=== PATIENT | male | born 2000 | race Caucasian/White ===

== ENCOUNTER 2022-07-04 11:59 | Emergency (ER) | payer SELFPAY ==
--- OUTSIDE RECORDS SUMMARY | 2022-07-04 12:03 | XMS REPORT | Continuity of Care Document ---
:2000 Author Organization [facility] t Address [address] [place] [address] [place] [id number] Care Team Providers Name Role Phone PREETHI PINZON Primary Care Physician Unavailable OCTAVIA PIERCE Attending Clinician Unavailable Octavia Pierce MD Attending Clinician Unknown, Attending Attending Clinician Unavailable OLGA HANEY Attending Clinician Unavailable Green REST ROOM ATTENDANT, Olga Attending Clinician Omaghomi REST ROOM ATTENDANT, Omayemi Attending Clinician MARISOL BREEN Attending Clinician Unavailable Jamshid REST ROOM ATTENDANTMarisol Attending Clinician Doctor Unassigned, [place] Attending Clinician Unavailable Only, Ang Db Test Attending Clinician Unavailable ELLA Attending Clinician Unavailable Preethi Pinzon MD Attending Clinician ANNA MARIE SULLIVAN Attending Clinician Unavailable ANNA MARIE SULLIVAN Attending Clinician Unavailable [facility], [facility] Attending Clinician Unavailable Anna Marie Sullivan MD Attending Clinician PREETHI PINZON Attending Clinician Unavailable ELLA Admitting Clinician Unavailable Payers Payer Name Policy Type Policy Number Effective Date Expiration Date S zaira [employer] O [id number] 2020 00:00:00 [place] [id number] 2019 00:00:00 Problems Condition Condition Condition Status Onset Resolution Last Treating Co mments Source Name Details Category Date Date Treatment Clinician Date Anxiety Anxiety Disease Active 2019-0 Univers 2-24 ity of 00:00: 00 Medical Branch Chronic Chronic Disease Active 2020- Univers fatigue fatigue 2-24 ity of 00:00: Medical Branch Daytime Daytime Disease Active 2019- Univers hypersomno hypersomno 2-24 it y of lence lence 00:00: [place] [facility] Allergies, Adverse Reactions, Alerts Allergy Allergy Status Severity Reaction(s) Onset Inactive Treating Comm ents Source Name Type Date Date Clinician Penicill Propensi Active Unknown - Uni vers ins ty to See comments 5-21 ity of adverse 00:00: [place] reaction 00 Medical s Branch Penicill Propensi Active Unknown - Uni vers ins ty to See comments 5-21 ity of adverse 00:00: [place] reaction 00 Medical s Branch Penicill Propensi Active Unknown - Uni vers ins ty to See comments 5-21 ity of adverse 00:00: [place] reaction 00 Medical s Branch PENICILL Drug Active Unknown-Cmnt Un troy INS Class 5-21 ity of 00:00: [place] [facility] Social History Social Habit Start Date Stop Date Quantity Comments Source History of Chews Tobacco University of tobacco use [place] [facility] History [facility] University o f Alcohol Std [place] [facility] Drinks Branch History [facility] University o f Alcohol Binge [place] [facility] Alcohol intake 2022-02-09 2022-02-09 Current drinker Unive rsity of 00:00:00 00:00:00 of alcohol [place] [facility] (finding) Branch Tobacco use and 2022-02-09 2022-02-09 Former smokeless Uni versity of exposure 00:00:00 00:00:00 tobacco user [place] [facility] Alcohol Comment 2022-02-09 2022-02-09 1 drink a Universit y of 00:00:00 00:00:00 day/week- [place] [facility] 30/weekend Branch Exposure to 2021-07-09 2021-07-19 Not sure University of SARS-CoV-2 00:00:00 12:23:00 [place] [facility] (event) Branch History SDOH 2019-04-09 2019-04-09 1 University o f Alcohol Frequency 00:00:00 00:00:00 [facility] edical Branch Sex Assigned At [birth year] Universit y of 00:00:00 00:00:00 [place] [facility] Smoking Status Start Date Stop Date Source Unknown if ever smoked Universit y of [facility] Never smoked tobacco [facility] Current some day smoker 2020-12-02 00:00:00 [facility] Medications Ordered Filled Start Stop Current Ordering Indication Dosage Frequency Signature Comments Components Source Medication Medication Date Date Medication? Clinician (SIG) Name Name azraFENesin 2021-02 Yes [id number] 400mg Take 1 Univers 400 mg 2-27 tablet by ity of tablet 00:00: mouth [place] 00 every 4 Medical (four) Branch hours as needed for Cough. benzonatate 2021-02 Yes [id number] 200mg Take 2 Univers 100 mg 2-27 capsules ity of capsule 00:00: by mouth [place] 00 every 8 Medical (eight) Branch hours as needed for Cough. azithromyci 2021-02 Yes [id number] 250mg Take 1 Univers n 2-27 tablet by ity of (ZITHROMAX 00:00: mouth in [place] as Z-PRIYA) 250 00 the Medical mg tablet morning. Branch mupirocin 2 Yes [id number] Apply to Univers % ointment 6-05 area(s) 3 ity of 00:00: (three) [place] 00 times Medical daily. Branch mupirocin 2 Yes [id number] Apply to Univers % ointment 6-05 area(s) 3 ity of 00:00: (three) [place] 00 times Medical daily. Branch doxycycline 2021- No [id number] 100mg Take 1 Univers hyclate 100 6- 06-13 tablet by it y of mg tablet 00:00: 04:59 [place] 2 [place] :[place] (two) Medical times [place] daily for 7 days. clindamycin 2021- No [id number] 300mg Take 1 Univers 300 mg 4-05 04-16 capsule by ity of capsule 00:00: 04:59 mouth 3 [place] 00 :00 (three) Medical times [place] daily for 10 days. amitriptyli 2020-02 Yes 50mg Take 50 mg Univers ne 50 mg 0-14 by mouth ity of tablet 00:00: daily. [place] [facility] amitriptyli 2020-02 Yes 50mg Take 50 mg Univers ne 50 mg 0-14 by mouth ity of tablet 00:00: daily. [place] [facility] amitriptyli 2020-02 Yes 50mg Take 50 mg Univers ne 50 mg 0-14 by mouth ity of tablet 00:00: daily. [place] [facility] amitriptyli 2020-02 Yes 50mg Take 50 mg Univers ne 50 mg 0-14 by mouth ity of tablet 00:00: daily. [place] [facility] amitriptyli 2020-02 Yes 50mg Take 50 mg Univers ne 50 mg 0-14 by mouth ity of tablet 00:00: daily. [place] [facility] amitriptyli 2020-02 Yes 50mg Take 50 mg Univers ne 50 mg 0-14 by mouth ity of tablet 00:00: daily. [place] [facility] amitriptyli 2020-02 Yes 50mg Take 50 mg Univers ne 50 mg 0-14 by mouth ity of tablet 00:00: daily. [place] [facility] amitriptyli 2020-02 Yes 50mg Take 50 mg Univers ne 50 mg 0-14 by mouth ity of tablet 00:00: daily. [place] [facility] amitriptyli 2020-02 Yes 50mg Take 50 mg Univers ne 50 mg 0-14 by mouth ity of tablet 00:00: daily. [place] [facility] amitriptyli 2020-02 Yes 50mg Take 50 mg Univers ne 50 mg 0-14 by mouth ity of tablet 00:00: daily. [address] PARoxetine 2020-0 Yes [id number] 10mg Take 1 U nivers 10 mg 2-24 tablet by ity of tablet 00:00: [place] [address] every Medical morning. Branch PARoxetine 2020-0 Yes [id number] 10mg Take 1 U nivers 10 mg 2-24 tablet by ity of tablet 00:00: mouth [place] [address] every Medical morning. Branch PARoxetine 2020-0 Yes [id number] 10mg Take 1 U nivers 10 mg 2-24 tablet by ity of tablet 00:00: mouth [place] [address] every Medical morning. Branch PARoxetine 2020-0 Yes [id number] 10mg Take 1 U nivers 10 mg 2-24 tablet by ity of tablet 00:00: mouth [place] [address] every Medical morning. Branch PARoxetine 2020-0 Yes [id number] 10mg Take 1 U nivers 10 mg 2-24 tablet by ity of tablet 00:00: mouth [place] 00 every Medical morning. Branch PARoxetine 2020-0 Yes [id number] 10mg Take 1 U nivers 10 mg 2-24 tablet by ity of tablet 00:00: mouth [place] 00 every Medical morning. Branch PARoxetine 2020-0 Yes [id number] 10mg Take 1 U nivers 10 mg 2-24 tablet by ity of tablet 00:00: mouth [place] 00 every Medical morning. Branch PARoxetine 2020-0 Yes [id number] 10mg Take 1 U nivers 10 mg 2-24 tablet by ity of tablet 00:00: mouth [place] 00 every Medical morning. Branch PARoxetine 2020-0 Yes [id number] 10mg Take 1 U nivers 10 mg 2-24 tablet by ity of tablet 00:00: mouth [place] 00 every Medical morning. Branch PARoxetine 2020-0 Yes [id number] 10mg Take 1 U nivers 10 mg 2-24 tablet by ity of tablet 00:00: mouth [place] 00 every Medical morning. Branch PARoxetine 2020-0 Yes [id number] 10mg Take 1 U nivers 10 mg 2-24 tablet by ity of tablet 00:00: mouth [place] 00 every Medical morning. Branch PARoxetine 2020-0 Yes [id number] 10mg Take 1 U nivers 10 mg 2-24 tablet by ity of tablet 00:00: mouth [place] 00 every Medical morning. Branch PARoxetine 2020-0 Yes [id number] 10mg Take 1 U nivers 10 mg 2-24 tablet by ity of tablet 00:00: mouth [place] 00 every Medical morning. Branch PARoxetine 2020-0 Yes [id number] 10mg Take 1 U nivers 10 mg 2-24 tablet by ity of tablet 00:00: mouth [place] 00 every Medical morning. Branch No known No Univers medications [facility] Vital Signs Vital Name Observation Time Observation Value Comments Source Systolic blood 2022-02-09 15:41:00 135 [facility] blood 2022-02-09 15:41:00 88 [facility]Hg[facility] Heart rate 2022-02-09 15:39:00 98 /min [facility] Body temperature 2022-02-09 15:39:00 36.44 Sonja [facility] Respiratory rate 2022-02-09 15:39:00 18 /min [facility] Body height 2022-02-09 15:39:00 172.7 cm Universi ty of [place] [facility] Body weight 2022-02-09 15:39:00 65.454 kg Universi ty of [place] [facility] BMI 2022-02-09 15:39:00 21.94 kg/m2 Universi ty of [place] [facility] Oxygen saturation in 2022-02-09 15:39:00 100 /min University of Arterial blood by [facility] jana Pulse oximetry Branch Systolic blood 2021-07-19 17:32:00 120 mm[Hg] Univer sity of pressure [place] [facility] Diastolic blood 2021-07-19 17:32:00 85 mm[Hg] Unive rsity of pressure [place] [facility] Heart rate 2021-07-19 17:32:00 75 /min Universi ty of [place] [facility] Body temperature 2021-07-19 17:32:00 36.28 Sonja Univ ersity of [place] [facility] Respiratory rate 2021-07-19 17:32:00 16 /min Univ ersity of [place] [facility] Body height 2021-07-19 17:32:00 175.3 cm Universi ty of [place] [facility] Body weight 2021-07-19 17:32:00 64.212 kg Universi ty of [place] [facility] BMI 2021-07-19 17:32:00 20.91 kg/m2 Universi ty of [place] [facility] Oxygen saturation in 2021-07-19 17:32:00 98 /min University of Arterial blood by [facility] [place] Pulse oximetry Branch Systolic blood 2021-05-19 18:39:00 136 mm[Hg] Univer sity of pressure [place] [facility] Diastolic blood 2021-05-19 18:39:00 74 mm[Hg] Unive rsity of pressure [place] [facility] Heart rate 2021-05-19 18:39:00 71 /min Universi ty of [place] [facility] Body temperature 2021-05-19 18:39:00 36.5 Sonja Univ ersity of [place] [facility] Respiratory rate 2021-05-19 18:39:00 18 /min Univ ersity of [place] [facility] Body height 2021-05-19 18:39:00 175.3 cm Universi ty of [place] [facility] Body weight 2021-05-19 18:39:00 63.368 kg Universi ty of [place] [facility] BMI 2021-05-19 18:39:00 20.63 kg/m2 Universi ty of [place] [facility] Oxygen saturation in 2021-05-19 18:39:00 99 /min University of Arterial blood by [facility] [place] Pulse oximetry Branch Systolic blood 2020-12-02 23:44:00 152 mm[Hg] Univer sity of pressure [place] [facility] Diastolic blood 2020-12-02 23:44:00 82 mm[Hg] Unive rsity of pressure [place] [facility] Heart rate 2020-12-02 23:40:00 108 /min Universi ty of [place] [facility] Body temperature 2020-12-02 23:40:00 37.33 Sonja Univ ersity of [place] [facility] Respiratory rate 2020-12-02 23:40:00 16 /min Univ ersity of [place] [facility] Body height 2020-12-02 23:40:00 175.3 cm Universi ty of [place] [facility] Body weight 2020-12-02 23:40:00 58.968 kg Universi ty of [place] [facility] BMI 2020-12-02 23:40:00 19.20 kg/m2 Universi ty of [place] [facility] Oxygen saturation in 2020-12-02 23:40:00 97 /min University of Arterial blood by [facility] [place] Pulse oximetry Branch Systolic blood 2019-04-09 16:54:00 132 mm[Hg] Univer sity of pressure [place] [facility] Diastolic blood 2019-04-09 16:54:00 75 mm[Hg] Unive rsity of pressure [place] [facility] Heart rate 2019-04-09 16:54:00 75 /min Universi ty of [place] [facility] Body temperature 2019-04-09 16:54:00 36.5 Sonja Univ ersity of [place] [facility] Body height 2019-04-09 16:54:00 172.7 cm Universi ty of [place] [facility] Body weight 2019-04-09 16:54:00 66.679 kg Universi ty of [place] [facility] BMI 2019-04-09 16:54:00 22.35 kg/m2 Universi ty of [place] [facility] Systolic blood 2019-04-09 16:54:00 132 mm[Hg] Univer sity of pressure [place] [facility] Diastolic blood 2019-04-09 16:54:00 75 mm[Hg] Unive rsity of pressure [place] [facility] Heart rate 2019-04-09 16:54:00 75 /min [facility] Body temperature 2019-04-09 16:54:00 36.5 Sonja [facility] Body height 2019-04-09 16:54:00 172.7 cm [facility] Body weight 2019-04-09 16:54:00 66.679 kg [facility] BMI 2019-04-09 16:54:00 22.35 kg/m2 [facility] Procedures Procedure Date / Time Performed Performing Clinician Sourc e POCT MOLECULAR FLU 2021-05-19 18:51:00 Octavia Pierceit y [facility] POCT MOLECULAR STREP 2021-05-19 18:46:00 Octavia Pierce [facility] ASSIGNMENT OF BENEFITS 2021-05-19 18:30:17 Doctor Unassigned, No [facility] POCT URINALYSIS 2020-12-02 23:50:00 Marisol Breen [facility] ASSIGNMENT OF BENEFITS 2019-04-09 15:59:23 Doctor Unassigned, No [facility] Encounters Start End Encounter Admission Attending Care Care Encounter Source Date/Time Date/Time Type Type Clinicians Facility Department ID 2022-02-09 2022-02-09 Outpatient Saeid PIERCE [facility] [id number] Univers 09:40:00 09:53:17 OCTAVIA ding [facility] 2022-02-09 2022-02-09 Urgent Octavia Pierce [facility] 1.2.840.114 [id number] Univers 09:40:00 09:53:17 Care Unknown, Attending [facility] 4.2.7.2.686 [place] as GURVINDER?BLEA [phone] [address] MEDICAL OFFICE BUILDING 2021-07-19 2021-07-19 Outpatient Saeid HANEY [facility] [id number] Univers 12:40:00 12:56:59 OLGA itjarod [facility] 2021-07-19 2021-07-19 Urgent Olga Haney [facility] 1.2.840.114 [id number] Univers 12:40:00 12:56:59 Care Omaghomi, Omayemi HEALTH 350.1.13.10 ity of [place] 4.2.7.2.686 [place] as GURVINDER?BLEA [phone] [address] MEDICAL OFF[address] [facility] 2021-05-19 2021-05-19 Outpatient R JAMSHID [facility] [id number] Univers 13:40:00 13:56:32 MARISOL ity o f [facility] 2021-05-19 2021-05-19 Urgent Marisol Breen [facility] 1.2.840. 114 [id number] Univers 13:40:00 13:56:32 Care Wolfgang Octavia HEALTH 350.1.13.10 ity of [place] 4.2.7.2.686 [place] as GURVINDER?BLEA [phone] [address] MEDICAL OFFICE [facility] 2021-05-19 2021-05-19 Orders Doctor [place] 1.2.840.114 [id number] Univers 00:00:00 00:00:00 Only Unassigned, KRISTA 350.1.13.10 ity of [place] [facility] 4.2.7.2.686 [place] as [phone] [address] 2021-02-15 2021-02-15 Outpatient R LYNDON [facility] [id number] Univers 14:30:00 14:51:36 OLGA ity of [facility] 2021-02-15 2021-02-15 Laboratory Only, Ang Db Test [facility] 1.2.8 40.114 [id number] Univers 14:30:00 14:45:00 Only Lyndon [facility] 350.1.13.10 ity of [place] 4.2.7.2.686 [place] as GURVINDER?BLEA [id number] [address] [facility] 2021-02-13 2021-02-13 Laboratory Only, Ang Db Test [facility] 1.2.8 40.114 [id number] Univers 17:00:00 17:15:00 Only Lyndon Olga HEALTH 350.1.13.10 ity of [place] 4.2.7.2.686 [place] as GURVINDER?BLEA [phone] Me [address] [facility] 2021-02-13 2021-02-13 Outpatient R LYNDON [facility] [id number] Univers 17:00:00 17:14:59 OLGA socorrojarod of [facility] 2021-02-13 2021-02-13 Letter Doctor LILIAN 1.2.840.114 [id number] Univers 00:00:00 00:00:00 (Out) Unassigned, KRISTA 350.1.13.10 ity of [place] [facility] 4.2.7.2.686 [place] as [phone] [address] 2020-12-15 2020-12-15 Telephone [facility] 1.2.840.114 [id number] Univers 00:00:00 00:00:00 [facility] 350.1.13.10 i ty [facility] 4.2.7.2.686 [place] as GURVINDER?BLEA [id number] [address] [facility] 2020-12-09 2020-12-09 Telephone [facility] 1.2.840.114 [id number] Univers 00:00:00 00:00:00 [facility] 350.1.13.10 i ty of [place] 4.2.7.2.686 [place] as Gurvinder?Blea [phone] [address] Office [facility] 2020-12-02 2020-12-02 Urgent [facility] 1.2.840.114 [id number] Univers 18:31:56 18:58:50 Care [facility] 350.1.13.10 i ty of [place] 4.2.7.2.686 [place] as Gurvinder?Blea [id number] [address] Office [facility] 2020-12-02 2020-12-02 Outpatient R JAMSHID [facility] [id number] Univers 18:20:00 18:20:00 MARISOL ding o f [facility] 2020-02-13 2020-02-13 Outpatient ERICKSON_R [facility] [id number] [place] 04:46:00 04:46:00 [facility] 2020-01-25 2020-01-25 Outpatient R [facility] [id number] Univers 15:20:00 15:20:00 ity of [facility] 2019-05-08 2019-05-08 Telephone Veronica [facility] 1.2.840.114 [id number] 00:00:00 00:00:00 [facility] 350.1.13.10 [place] 4.2.7.2.686 Professio [phone] [place] [address] Office Building [facility] 2019-05-08 2019-05-08 Telephone Veronica [facility] 1.2.840.114 [id number] Univers 00:00:00 00:00:00 [facility] 350.1.13.10 ity of [place] 4.2.7.2.686 [place] as Professio [id number] [address] Office Building [facility] 2019-04-11 2019-04-11 Outpatient R ANNA MARIE SULLIVAN [facility] [id number] Univers 15:00:00 15:00:00 ANNA MARIE SULLIVAN ity [facility] 2019-04-11 2019-04-11 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 10 ity of [place] 4.2.7.2.686 [place] [facility] [phone] [address] 2019-04-09 2019-04-09 Office Veronica [facility] 1.2.840.114 [id number] 10:02:14 11:37:38 Visit [facility] 350.1.13.10 [place] 4.2.7.2.686 Professio [phone] [place] [address] Office Building [facility] 2019-04-09 2019-04-09 [facility] 1.2.840.114 [id number] [facility] 10:02:14 11:37:38 Visit [facility] 350.1.13.10 ity of [place] 4.2.7.2.686 [place] as Professio [phone] [address] Office Building [facility] 2019-04-09 2019-04-09 Outpatient R VERONICA, [facility] [id number] Univers 11:00:00 11:00:00 WONDIFUL ity o f [facility] 2019-04-09 2019-04-09 Orders Doctor LILIAN 1.2.840.114 [id number] 00:00:00 00:00:00 Only Unassigned, KRISTA 350.1.13.10 ity of [place] [facility] 4.2.7.2.686 [place] as [phone] [address] Results Test Description Test Time Test Comments Results Result Comments Source POCT MOLECULAR FLU 2021-05-19 19:03:04 Test Item Value Reference Range Interpretation Comme nts POCT Molecular FluA (test code = 29055-5) Negative Negative POCT Molecular FluB (test code = 65115-5) Negative Negative Lab Interpretation (test code = 51466-9) Normal [facility] MOLECULAR [id number] 18:52:01 Test Item Value Reference Range Interpretation Comments POCT Molecular Strep (test code = Positive Negative A 80373-2) Lab Interpretation (test code = Abnormal 81431-3) [facility] URINALYSIS W SPECIFIC [id number] 23:51:00 Test Item Value Reference Range Interpretation Comments POCT U SP GRAV (test 1.015 mg/dl 1.005-1.025 code = 3255) POCT PH U (test code = 7 mg/dl 5-8 3254) POCT U LEUK EST (test trace Negative - code = 3263) Negative POCT U NIT (test code neg Negative - = 3262) Negative POCT U PROT (test code neg Negative - = 3259) Negative POCT U GLU (test code norm Negative - = 3256) Negative POCT U KETONE (test neg Negative - code = 3258) Negative POCT U UROBILI (test norm 0.2-1 code = 3260) POCT U BILI (test code neg Negative - = 3261) Negative POCT U BLD (test code neg Negative - = 3257) Negative POCT U COLOR (test yellow code = 3266) POCT U APPEAR (test clear code = 3267) KACI (test code = KACI) accurate development and interpretation of all internal controls Lab Interpretation Normal (test code = 88917-6) [facility]
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
[2022-07-04] MEDS ORDERED: ACETAMINOPHEN 500 MG TAB ONE (15:05)
[2022-07-04 15:17] VITALS: TEMP 98.1
[2022-07-04 15:28] VITALS: BP 140/91; O2SAT 98
== END 2022-07-04 15:02 | disposition short-term general hospital (02) ==
LOC: ER 11:59
DX: S32.9XXA Fracture of unspecified parts of lumbosacral spine and pelvis, initial encounter for closed fracture (principal)
CPT/HCPCS: 70450; 71260; 72125; 74177; Q9967